=== PATIENT | male | born 1955 | race Caucasian/White ===

== ENCOUNTER 2017-04-06 13:22 | Emergency (ER) | payer MEDICARE, MEDICAID ==
[~2017-04-06] VITALS: Ht 170.2 cm; Wt 78.7 kg
[2017-04-06 13:31] VITALS: BP 149/86
[2017-04-06] MEDS ORDERED: NALOXONE 1 MG/ML, 2ML ONE ×2 (14:44→14:47)
== END 2017-04-06 14:37 | disposition home or self-care (01) ==
LOC: ED 13:58
DX: I80.01 Phlebitis and thrombophlebitis of superficial vessels of right lower extremity (principal)
CPT/HCPCS: 99284

== ENCOUNTER 2018-01-15 11:32 | Emergency (ER) | payer MEDICARE, MEDICAID ==
[~2018-01-15] VITALS: Ht 170.2 cm; Wt 76.0 kg
[2018-01-15] MEDS ORDERED: MECLIZINE CHEWABLE 25 MG TAB ONE (12:08)
[2018-01-15 12:23] LABS: BASOPHILS # (AUTO) 0.07 x10^3/uL (0-0.1); BASOPHILS % (AUTO) 1 % (0-1); EOSINOPHILS # (AUTO) 0.07 x10^3/uL (0-0.4); EOSINOPHILS % (AUTO) 2 % (1-7); LYMPHOCYTES # (AUTO) 1.33 x10^3/uL (1-3.4); LYMPHOCYTES % (AUTO) 27 % (22-44); MD NO; MEAN CORPUSCULAR HEMOGLOBIN 32.2 pg (27.5-34.5); MEAN CORPUSCULAR HGB CONC 33.9 g/dL (33.2-36.2); MEAN CORPUSCULAR VOLUME 94.9 fL (81-97); MEAN PLATELET VOLUME 8.6 fL (7.4-10.4); MONOCYTES # (AUTO) 0.35 x10^3/uL (0.2-0.8); MONOCYTES % (AUTO) 7 % (2-9); NEUTROPHILS % (AUTO) 63 % (42-75); PLATELET COUNT 155 x10^3/uL (130-400); RED BLOOD COUNT 4.92 x10^6/uL (4.38-5.82); RED CELL DISTRIBUTION WIDTH 14.4 % (9.4-14.8)
[2018-01-15] MEDS ORDERED: MECLIZINE CHEWABLE 25 MG TAB PO ONE (12:30)
[2018-01-15 12:33] LABS: ALANINE AMINOTRANSFERASE 23 U/L (12-78); ALBUMIN 3.8 g/dL (3.4-5.0); ANION GAP 8 mmol/L (5-15); CALCIUM 8.8 mg/dL (8.5-10.1); CHLORIDE 109 mmol/L (98-107); SALICYLATE LEVEL 4.2 mg/dL (2.8-20.0)
[2018-01-15 12:36] LABS: ALKALINE PHOSPHATASE 95 U/L (45-117); BILIRUBIN,TOTAL 0.6 mg/dL (0.2-1.0); TOTAL PROTEIN 7.2 g/dL (6.4-8.2)
[2018-01-15 12:41] LABS: ACETAMINOPHEN < 2 mcg/mL (10-30)
[2018-01-15 14:58] VITALS: BP 133/84
== END 2018-01-15 15:01 | disposition home or self-care (01) ==
LOC: ED 14:29
DX: R42 Dizziness and giddiness (principal); F17.200 Nicotine dependence, unspecified, uncomplicated; Z79.899 Other long term (current) drug therapy
CPT/HCPCS: 36415; 70450; 80053; 80307; 80329; 85025; 93005; 99285; G0480

== ENCOUNTER 2018-01-15 20:13 | Emergency (ER) | payer MEDICARE, MEDICAID ==
[~2018-01-15] VITALS: Ht 170.2 cm; Wt 75.6 kg
[2018-01-15 21:32] VITALS: BP 131/77
== END 2018-01-15 23:11 | disposition left against medical advice (07) ==
LOC: ED 20:56
DX: R42 Dizziness and giddiness (principal)
CPT/HCPCS: 99281

== ENCOUNTER 2018-01-16 10:33 | Emergency (ER) | payer MEDICARE, MEDICAID ==
[~2018-01-16] VITALS: Ht 170.2 cm; Wt 78.7 kg
[2018-01-16 11:36] LABS: MEAN CORPUSCULAR HEMOGLOBIN 32.1 pg (27.5-34.5); MEAN CORPUSCULAR HGB CONC 33.5 g/dL (33.2-36.2); MEAN CORPUSCULAR VOLUME 95.6 fL (81-97); MEAN PLATELET VOLUME 8.6 fL (7.4-10.4); PLATELET COUNT 156 x10^3/uL (130-400); RED BLOOD COUNT 4.81 x10^6/uL (4.38-5.82); RED CELL DISTRIBUTION WIDTH 14.3 % (9.4-14.8)
[2018-01-16 11:41] LABS: ALANINE AMINOTRANSFERASE 22 U/L (12-78); ALBUMIN 3.5 g/dL (3.4-5.0); ANION GAP 8 mmol/L (5-15); CALCIUM 8.6 mg/dL (8.5-10.1); CHLORIDE 110 mmol/L (98-107)
[2018-01-16 11:44] LABS: ALKALINE PHOSPHATASE 88 U/L (45-117); BILIRUBIN,TOTAL 0.6 mg/dL (0.2-1.0); CREATININE 0.88 mg/dL (0.7-1.3); TOTAL PROTEIN 7.1 g/dL (6.4-8.2)
[2018-01-16 12:31] LABS: EOS#(MANUAL) 0.31 x10^3/uL (0.0-0.4); EOS% (MANUAL) 5 % (1-7); LYMPH#(MANUAL) 2.62 x10^3/uL (1-3.4); LYMPHS% (MANUAL) 43 % (22-44); MD YES; MONOS#(MANUAL) 0.31 x10^3/uL (0.3-2.7); MONOS% (MANUAL) 5 % (2-9); SEG#(MANUAL) 2.87 x10^3/uL (1.8-6.8); SEGS% (MANUAL) 47 % (42-75)
[2018-01-16 12:32] LABS: <PLATELET ESTIMATE> ADEQUATE; <PLT MORPHOLOGY> NORMAL PLT MORPH; <RBC MORPHOLOGY> NORMAL
[2018-01-16] MEDS ORDERED: OMNIPAQUE 350 MG/ML, 100ML BOTTLE ONE (13:06)
[2018-01-16 13:10] VITALS: BP 115/60
== END 2018-01-16 13:44 | disposition home or self-care (01) ==
LOC: ED 13:42
DX: R42 Dizziness and giddiness (principal); H93.11 Tinnitus, right ear
CPT/HCPCS: 36415; 70496; 70498; 70551; 80053; 80307; 85025; 93005; 99285; Q9967

== ENCOUNTER 2018-05-14 08:32 | Emergency (ER) | payer MEDICARE, MEDICAID ==
[~2018-05-14] VITALS: Ht 170.2 cm; Wt 79.0 kg
[2018-05-14] MEDS ORDERED: KETOROLAC 30 MG/1 ML ONE (08:52)
[2018-05-14] MEDS ORDERED: DIAZEPAM 5 MG TABLET ONE (08:53)
[2018-05-14] MEDS ORDERED: HYDROcodone/APAP 5/325 TABLET ONE (08:53)
[2018-05-14] MEDS ORDERED: KETOROLAC 30 MG/1 ML IM ONE (09:00)
[2018-05-14] MEDS ORDERED: HYDROcodone/APAP 5/325 TABLET PO ONE (09:00)
[2018-05-14] MEDS ORDERED: DIAZEPAM 5 MG TABLET PO ONE (09:00)
[2018-05-14 09:03] VITALS: BP 150/93
== END 2018-05-14 10:09 | disposition home or self-care (01) ==
LOC: ED 09:29
DX: S29.012A Strain of muscle and tendon of back wall of thorax, initial encounter (principal); S23.41XA Sprain of ribs, initial encounter; X58.XXXA Exposure to other specified factors, initial encounter; Y93.89 Activity, other specified; Y99.8 Other external cause status; Y92.89 Other specified places as the place of occurrence of the external cause
CPT/HCPCS: 71101; 93005; 96372; 99284; J1885

== ENCOUNTER 2020-03-22 14:07 | Emergency (ER) | payer MEDICAID, MEDICARE, OTHER ==
[~2020-03-22] VITALS: Ht 170.2 cm; Wt 76.0 kg
[2020-03-22 14:12] VITALS: BP 167/95
[2020-03-22] MEDS ORDERED: MECLIZINE CHEWABLE 25 MG TAB PO ONE (15:00)
[2020-03-22 15:12] LABS: BASOPHILS # (AUTO) 0.06 x10^3/uL (0-0.1); BASOPHILS % (AUTO) 1 % (0-1); EOSINOPHILS % (AUTO) 2 % (1-7); LYMPHOCYTES % (AUTO) 34 % (22-44); MD NO; MEAN CORPUSCULAR HEMOGLOBIN 32.1 pg (27.5-34.5); MEAN CORPUSCULAR HGB CONC 32.5 g/dL (33.2-36.2); MEAN CORPUSCULAR VOLUME 98.6 fL (81-97); MEAN PLATELET VOLUME 8.2 fL (7.4-10.4); MONOCYTES % (AUTO) 6 % (2-9); NEUTROPHILS # (AUTO) 3.84 x10^3/uL (1.8-6.8); NEUTROPHILS % (AUTO) 57 % (42-75); PLATELET COUNT 165 x10^3/uL (130-400); RED BLOOD COUNT 5.11 x10^6/uL (4.38-5.82); RED CELL DISTRIBUTION WIDTH 14.4 % (9.4-14.8)
[2020-03-22] MEDS ORDERED: MECLIZINE CHEWABLE 25 MG TAB ONE (15:20)
[2020-03-22 15:21] LABS: ALBUMIN 3.7 g/dL (3.4-5.0); ANION GAP 3 mmol/L (5-15); CALCIUM 8.7 mg/dL (8.5-10.1); CHLORIDE 110 mmol/L (98-107); CREATININE 0.87 mg/dL (0.7-1.3)
--- NOTE | 2020-03-22 17:20 | NUR ---
Patient given discharge instructions and they have confirmed that they understand the instructions. Patient ambulatory with steady gait.
== END 2020-03-22 17:21 | disposition home or self-care (01) ==
LOC: ED 14:51
DX: R42 Dizziness and giddiness (principal); R51 Headache; R00.1 Bradycardia, unspecified; I44.4 Left anterior fascicular block; M79.10 Myalgia, unspecified site; F17.200 Nicotine dependence, unspecified, uncomplicated
CPT/HCPCS: 36415; 70450; 80048; 82040; 85025; 93005; 99285

== ENCOUNTER 2021-02-14 06:05 | Emergency (ER) | payer MEDICARE, OTHER ==
[~2021-02-14] VITALS: Ht 170.2 cm; Wt 70.2 kg
[2021-02-14] MEDS ORDERED: SODIUM CHLORIDE FLUSH 10ML SYR IVF ONE (06:30)
[2021-02-14] MEDS ORDERED: SODIUM CHLORIDE 0.9% 1,000ML IVBOLUS ONE (06:30)
--- NOTE | 2021-02-14 06:54 | NUR ---
RECEIVED REPORT FROM CHELO LOGAN, PLAN OF CARE DISCUSSED
[2021-02-14 07:11] LABS: BASOPHILS % (AUTO) 1 % (0-1); EOSINOPHILS % (AUTO) 0 % (1-7); LYMPHOCYTES % (AUTO) 13 % (22-44); MEAN CORPUSCULAR HEMOGLOBIN 33.8 pg (27.5-34.5); MEAN CORPUSCULAR HGB CONC 34.1 g/dL (33.2-36.2); MONOCYTES % (AUTO) 12 % (2-9); NEUTROPHILS % (AUTO) 74 % (42-75); PLATELET COUNT 123 x10^3/uL (130-400); RED BLOOD COUNT 5.09 x10^6/uL (4.38-5.82); RED CELL DISTRIBUTION WIDTH 12.9 % (9.4-14.8)
--- NOTE | 2021-02-14 07:15 | NUR ---
PT RESTING, STATES HE FEELS BETTER. IVF COMPLETED. PT ON [employer] SINUS, SAT 91%, RA. PT VERBALIZED NO NEEDS AT THIS TIME
[2021-02-14 07:19] LABS: ALANINE AMINOTRANSFERASE 31 U/L (12-78); ALBUMIN 3.4 g/dL (3.4-5.0); ANION GAP 8 mmol/L (5-15); CALCIUM 9.6 mg/dL (8.5-10.1); CHLORIDE 100 mmol/L (98-107); CREATININE 0.74 mg/dL (0.7-1.3)
[2021-02-14 07:24] LABS: ALKALINE PHOSPHATASE 79 U/L (45-117); BILIRUBIN,TOTAL 1.4 mg/dL (0.2-1.0); TOTAL PROTEIN 8.1 g/dL (6.4-8.2); TROPONIN I < 0.015 ng/mL (0.000-0.045)
[2021-02-14] MEDS ORDERED: CEFTRIAXONE 1,000 MG in DEXTROSE 5% 50 ML IVPB ONE (07:30)
[2021-02-14] MEDS ORDERED: AZITHROMYCIN 500 MG in SODIUM CHLORIDE 0.9% 250 ML IVPB ONE (07:30)
[2021-02-14] MEDS ORDERED: KETOROLAC 30 MG/1 ML ONE (07:57)
[2021-02-14] MEDS ORDERED: KETOROLAC 30 MG/1 ML IVPush ONE (08:00)
--- NOTE | 2021-02-14 08:41 | NUR ---
ANTIBX INFUSING, PT VERBALIZED NO NEEDS AT THIS TIME
[2021-02-14 09:06] VITALS: BP 119/69
--- NOTE | 2021-02-14 09:06 | NUR ---
Patient/Caregiver given discharge instructions and they have confirmed that they understand the instructions. Patient ambulatory with steady gait. NAD, all questions answered appropriately, denies additional needs at this time. No personal belongings left in room after discharge.
== END 2021-02-14 09:27 | disposition home or self-care (01) ==
LOC: ED 09:10
DX: J15.9 Unspecified bacterial pneumonia (principal); Z20.822 Contact with and (suspected) exposure to COVID-19; R09.1 Pleurisy; R00.0 Tachycardia, unspecified; F17.200 Nicotine dependence, unspecified, uncomplicated
CPT/HCPCS: 36415; 71045; 80053; 83605; 83880; 84145; 84484; 85025; 87040; 93005; 96365; 96366; 96368; 96375; 99285; J0456; J0696; J1885; J7030; J7050; U0003; U0005; 96361